=== PATIENT | female | born 1995 | race American Indian/Alaskan Native ===

== ENCOUNTER 2018-08-28 01:16 | Emergency (ER) | payer MEDICAID ==
[2018-08-28 01:54] LABS: Basophils # (Auto) 0.1 K/mm3 (0.0-0.1); Basophils % (Auto) 0.6 % (0.0-1.8); Eosinophils # (Auto) 0.1 K/mm3 (0.0-0.4); Eosinophils % (Auto) 0.6 % (0.0-4.3); Hematocrit 38.5 % (30.3-42.9); Hemoglobin 13.2 gm/dl (10.1-14.3); Lymphocytes # (Auto) 2.3 K/mm3 (1.2-5.4); Lymphocytes % (Auto) 18.3 % (13.4-35.0); Mean Corpuscular HGB Conc 34 % (30-34); Mean Corpuscular Volume 96 fl (79-97); Monocytes # (Auto) 0.7 K/mm3 (0.0-0.8); Monocytes % (Auto) 5.8 % (0.0-7.3); Platelet Count 303 K/mm3 (140-440); Red Blood Count 4.02 M/mm3 (3.65-5.03); Red Cell Distribution Width 13.8 % (13.2-15.2)
[2018-08-28 02:31] LABS: Alanine Aminotransferase 6 units/L (7-56); Albumin 4.7 g/dL (3.9-5); BUN/Creatinine Ratio 9; Blood Urea Nitrogen 6 mg/dL (7-17); Calcium 9.8 mg/dL (8.4-10.2); Hemolysis Index 7
--- NOTE | 2018-08-28 04:00 | Emergency Department Report ---
<MARELY LARA - Last Filed: 08/28/18 05:38> ED HPI - General Chief complaint: Vaginal Bleeding Stated complaint: VAGINAL BLEEDING 16WKS Time Seen by Provider: 08/28/18 03:36 Source: patient Mode of arrival: Ambulatory Limitations: No Limitations - History of Present Illness Initial comments: 23-year-old -Indian female that reports that she is 14 weeks states that she started having vaginal bleeding tonight. Patient reports he has not used any pads. She reports that she is having spotting when she wiped she has dark blood on the toilet tissue. Patient does admit to urinary frequency and some dysuria. Patient reports she had pelvic cramping severe earlier in the day but that she currently has no cramping now. Patient reports that she had nausea vomiting diarrhea. Patient reports that she is followed by [facility] in [place]. She is currently taking vitamins and reports she is drinking plenty of water. Patient is 3 para 2. Patient denies any f ever or chills. MD Complaint: abdominal pain, vaginal bleeding -: days(s) (1) Location: pelvis Severity: severe (active cramping or pain at this time) Quality: cramping Consistency: intermittent Improves with: none Worsens with: none Associated symptoms: nausea/vomiting, vaginal bleeding, dysuria Vaginal bleeding: light :: Yes Number of weeks : 14 OB History - Current : no complications OB History - Previous Pregnancies: no complications Last menstrual period: 05/15/18 Pre- care: followed by OB ([facility] in [place]) - Related Data : 3 Para: 2 Previous Rx's Medication Instructions Recorded Last Taken Type Ciprofloxacin HCl [Cipro] 500 mg PO BID #14 tablet 03/08/14 Unknown Rx Ibuprofen [Motrin 800 MG tab] 800 mg PO Q8H PRN #30 tablet 03/08/14 Unknown Rx Phenazopyridine [Pyridium] 200 mg PO TID #6 tablet 03/08/14 Unknown Rx Promethazine [Phenergan TAB] 25 mg PO Q6HR PRN #20 tab 07/07/18 Unknown Rx Nitrofurantoin Monohyd/M-Cryst 100 mg PO BID #20 capsule 08/28/18 Unknown Rx [Macrobid 100 mg Capsule] metroNIDAZOLE [Metronidazole] 500 mg PO TID #21 tablet 08/28/18 Unknown Rx Allergies Allergy/AdvReac Type Severity Reaction Status Date / Time No Known Allergies Allergy Verified 08/28/18 01:25 ED Review of Systems Comment: All other systems reviewed and negative Gastrointestinal: abdominal pain (pelvic cramping no active cramping at this time), nausea, vomiting Genitourinary: dysuria, frequency, hematuria ED Past Medical Hx - Past Medical History Previous Medical History?: Yes Hx Hypertension: Yes (with 1st not with current) - Surgical History Past Surgical History?: Yes Additional Surgical History: c section x2 - Social History Smoking Status: Never Smoker Substance Use Type: None - Medications Home Medications: Home Medications Medication Instructions Recorded Confirmed Last Taken Type Ciprofloxacin HCl [Cipro] 500 mg PO BID #14 tablet 03/08/14 Unknown Rx Ibuprofen [Motrin 800 MG tab] 800 mg PO Q8H PRN #30 tablet 03/08/14 Unknown Rx Phenazopyridine [Pyridium] 200 mg PO TID #6 tablet 03/08/14 Unknown Rx Promethazine [Phenergan TAB] 25 mg PO Q6HR PRN #20 tab 07/07/18 Unknown Rx Nitrofurantoin Monohyd/M-Cryst 100 mg PO BID #20 capsule 08/28/18 Unknown Rx [Macrobid 100 mg Capsule] metroNIDAZOLE [Metronidazole] 500 mg PO TID #21 tablet 08/28/18 Unknown Rx ED Physical Exam - General Limitations: No Limitations General appearance: alert, in no apparent distress - Head Head exam: Present: atraumatic, normocephalic - Eye Eye exam: Present: normal appearance - ENT ENT exam: Present: mucous membranes moist - Neck Neck exam: Present: normal inspection, full ROM - Respiratory Respiratory exam: Present: normal lung sounds bilaterally. Absent: respiratory distress - Cardiovascular Cardiovascular Exam: Present: regular rate, normal rhythm. Absent: systolic murmur, diastolic murmur, rubs, gallop - GI/Abdominal GI/Abdominal exam: Present: soft, normal bowel sounds. Absent: distended, tenderness - External exam: Present: normal external exam Speculum exam: Present: vaginal discharge. Absent: vaginal bleeding Bi-manual exam: Present: adnexal tenderness (left). Absent: uterine tenderness - Extremities Exam Extremities exam: Present: full ROM - Back Exam Back exam: Present: normal inspection, full ROM - Neurological Exam Neurological exam: Present: alert, oriented X3, normal gait - Psychiatric Psychiatric exam: Present: normal affect, normal mood - Skin Skin exam: Present: warm, dry, intact, normal color. Absent: rash ED Medical Decision Making - Lab Data Result diagrams: 08/28/18 01:32 08/28/18 01:32 - Radiology Data Radiology results: report reviewed FINDINGS: There is a single viable intrauterine with an estimated gestational age of 15 weeks 0 days based on sonographic criteria. The heart rate is 151 BPM. The placenta is posterior in position and is grade 0. The amniotic fluid volume is grossly normal. Complete survey of organs was not obtained. Adjacent to the gestational sac is a small hypo echoic focus compatible with a small subchorionic hemorrhage. Free fluid is not seen. The maternal right ovary is normal in size contour and echotexture. The left ovary is not seen. IMPRESSION: Single viable IUP, 15 weeks 0 days. The heart rate is 157 BPM. No adnexal masses or fluid collections. Small subchorionic hemorrhage noted. Transcribed By: RB Dictated By: KOFI WILSON MD Electronically Authenticated By: KOFI WILSON MD Signed Date/Time: 08/28/18528 DD/ 0 TD/TT: 08/28/18530 - Medical Decision Making Patient has been evaluated by this provider in fast track. Patient currently has no pelvic or abdominal pains. Patient has Tea color urine. Pelvic exam shows no blood in vaginal vault mild vaginal discharge. Patient's lab work shows mild elevation of her WBCs 12.6, potassium 3.4. Ultrasound pelvic and transvaginal is been ordered. Urinalysis shows patient has urinary tract infection with greater than 182 WBCs and greater than 182 RBCs patient also has ketones in her urine. We'll place an IV with normal saline bolus. We'll discharge patient on Macrobid 100 mg twice a day for 10 days. With instructions to increase her water intake and to follow-up with her regional medical director. Patient complains of severe headache will give her Tylenol No. 3. ED Disposition Clinical Impression: Bacterial vaginosis UTI (urinary tract infection) Qualifiers: Urinary tract infection type: acute cystitis Hematuria presence: with hematuria Qualified Code(s): N30.01 - Acute cystitis with hematuria Disposition: DC-01 TO HOME OR SELFCARE Is pt being admited?: No Does the pt Need Aspirin: No Condition: Stable Instructions: Bacterial Vaginosis (ED), Urinary Tract Infection in Women (ED) Additional Instructions: Please complete antibiotics as prescribed. Please increase her water intake by 3 L daily. Please follow up with her regional medical director for repeat urinalysis. Tylenol for pain. YOU NEED TO SEE OBGYN - THESE INFECTIONS CAN IMPACT YOUR SAFE SEX Prescriptions: metroNIDAZOLE [Metronidazole] 500 mg PO TID #21 tablet Nitrofurantoin Monohyd/M-Cryst [Macrobid 100 mg Capsule] 100 mg PO BID #20 capsule Referrals: PRIMARY CARE, [Primary Care Provider] - 3-5 Days Forms: Work/School Release Form(ED), STI Treatment and Prevention <LINDSAY ZAMORA - Last Filed: 08/28/18 07:49> ED Review of Systems ROS: Stated complaint: VAGINAL BLEEDING 16WKS Other details as noted in HPI ED Course Vital Signs 08/28/18 01:20 Temperature 98.3 F Pulse Rate 80 Respiratory 18 Rate Blood Pressure 130/76 O2 Sat by Pulse 100 Oximetry ED Medical Decision Making - Lab Data Result diagrams: 08/28/18 01:32 08/28/18 01:32 - Medical Decision Making DC HOME WITH FLAGYL AND MACROBID. TO FOLLOW UP WITH HER OBGYN. VSS ON DC Labs 08/28/18 08/28/18 08/28/18 01:32 01:32 01:32 WBC 12.6 H RBC 4.02 Hgb 13.2 Hct 38.5 MCV 96 MCH 33 H MCHC 34 RDW 13.8 Plt Count 303 Lymph % (Auto) 18.3 [place] % (Auto) 5.8 Eos % (Auto) 0.6 Baso % (Auto) 0.6 Lymph # 2.3 [place] # 0.7 Eos # 0.1 Baso # 0.1 Seg Neutrophils % 74.7 H Seg Neutrophils # 9.4 H Sodium 133 L Potassium 3.4 L Chloride 95.4 L Carbon Dioxide 21 L Anion Gap 20 BUN 6 L Creatinine 0.7 Estimated GFR > 60 BUN/Creatinine Ratio 9 Glucose 87 Calcium 9.8 Total Bilirubin 0.50 AST 14 ALT 6 L Alkaline Phosphatase 74 Total Protein 8.3 H Albumin 4.7 Albumin/Globulin Ratio 1.3 HCG, Quant 82657 H Urine Color Urine Turbidity Urine pH Ur Specific [place] Urine Protein Urine Glucose (UA) Urine Ketones Urine Blood Urine Nitrite Urine Bilirubin Urine Urobilinogen Ur Leukocyte Esterase Urine WBC (Auto) Urine RBC (Auto) U Epithel Cells (Auto) Urine Mucus Blood Type Antibody Screen 08/28/18 08/28/18 01:32 03:42 WBC RBC Hgb Hct MCV MCH MCHC RDW Plt Count Lymph % (Auto) [place] % (Auto) Eos % (Auto) Baso % (Auto) Lymph # [place] # Eos # Baso # Seg Neutrophils % Seg Neutrophils # Sodium Potassium Chloride Carbon Dioxide Anion Gap BUN Creatinine Estimated GFR BUN/Creatinine Ratio Glucose Calcium Total Bilirubin AST ALT Alkaline Phosphatase Total Protein Albumin Albumin/Globulin Ratio HCG, Quant Urine Color [place] Urine Turbidity Slightly-cloudy Urine pH 5.0 Ur Specific [place] 1.028 Urine Protein 100 mg/dl Urine Glucose (UA) Neg Urine Ketones 80 Urine Blood Lg Urine Nitrite Neg Urine Bilirubin Neg Urine Urobilinogen 4.0 Ur Leukocyte Esterase Mod Urine WBC (Auto) > 182.0 H Urine RBC (Auto) > 182.0 U Epithel Cells (Auto) 1.0 Urine Mucus 3+ Blood Type O POSITIVE Antibody Screen Negative Critical care attestation.: If time is entered above; I have spent that time in minutes in the direct care of this critically ill patient, excluding procedure time. ED Disposition Time of Disposition: 07:48
[2018-08-28 04:36] LABS: Bilirubin,Urine NEG (Negative); Blood,Urine LG (Negative); Color,Urine Amber (Yellow); Mucus,Urine 3+ /HPF
[2018-08-28 04:40] LABS: RBC,Urine > 182.0 /HPF (0.0-6.0); WBC,Urine > 182.0 /HPF (0.0-6.0)
[2018-08-28] MEDS ORDERED: NACL 0.9% 1000 ML 1,000 ML IV ONE (05:00)
--- NOTE | 2018-08-28 05:29 | Ultrasound Report ---
FINAL REPORT EXAM: US OB >= 14 WK FETUS ADD GEST HISTORY: vaginal spotting and pelvic cramps TECHNIQUE: Transabdominal imaging was obtained the pelvis along with Doppler interrogation of the ad nexa. FINDINGS: There is a single viable intrauterine with an estimated gestational age of 15 weeks 0 days based on sonographic criteria. The heart rate is 151 BPM. The placenta is posterior in position and is grade 0. The amniotic fluid volume is grossly normal. Complete survey of organs was not obtained. Adjacent to the gestational sac is a small hypo echoic focus compatible with a small subch orionic hemorrhage. Free fluid is not seen. The maternal right ovary is normal in size contour and echotexture. The left ovary is not seen. IMPRESSION: Single viable IUP, 15 weeks 0 days. The heart rate is 157 BPM. No adnexal masses or fluid collections. Small subchorionic hemorrhage noted.
--- NOTE | 2018-08-28 05:30 | Ultrasound Report ---
FINAL REPORT EXAM: US OB TRANSVAGINAL HISTORY: vaginal spotting and pelvic cramps TECHNIQUE: Limited transvaginal imaging was obtained the pelvis. FINDINGS: Only 4 images were obtained transvaginally. The patient refused to continue the examination. One of t he images shows the hypoechoic focus adjacent to the gestational sac compatible with a subchorionic h emorrhage. IMPRESSION: Extremity limited study with only for transvaginal images obtained. Please refer to the transabdomina l study for more detailed information.
[2018-08-28] MEDS ORDERED: TYLENOL #3 PO ONE (05:40)
[2018-08-28 07:59] VITALS: BP 122/68
== END 2018-08-28 07:58 | disposition home or self-care (01) ==
LOC: ED 01:16
DX: O23.42 Unspecified infection of urinary tract in pregnancy, second trimester (principal); O23.592 Infection of other part of genital tract in pregnancy, second trimester; O21.8 Other vomiting complicating pregnancy; I10 Essential (primary) hypertension; Z3A.14 14 weeks gestation of pregnancy
CPT/HCPCS: 36415; 76805; 76817; 80053; 81001; 84702; 85025; 86850; 86900; 86901; 87210; 99285; J7030; 96360